=== PATIENT | female | born 1955 | race African-American/Black ===

== ENCOUNTER 2016-07-14 23:40 | Emergency (ER) | payer OTHER ==
--- NOTE | ~2016-07-14 | EKG ---
PATIENT: DONNELL PHILIP UNIT #: [id number] Ventricular Rate: 71 BPM Atrial Rate: 71 BPM P-R Interval: 154 ms QRS Duration: 80 ms Q-T Interval: 418 ms QTC Calculation(Bezet): 454 ms P [place]: 50 degrees Calculated R [place]: 55 degrees Calculated T [place]: 62 degrees Diagnosis Line: Normal sinus rhythm Diagnosis Line: Normal ECG Diagnosis Line: When compared with ECG of 23-DEC-2011 00:27, Diagnosis Line: No significant change was found Diagnosis Line: Confirmed by JEANNINE CORONA MD ([id number]) on Diagnosis Line: 07/16/2016 4:05:53 PM INTERPRETING MD: CJ JOSÉ
--- NOTE | ~2016-07-14 | CR72 ---
[facility] A Service of [facility] & [facility] RADIOLOGY TEXT RESULTS PATIENT: DONNELL PHILIP LOCATION: [facility] : 51 UNIT #: [id number] AGE: [address]: Barney Silverman MD SEX: F ORDER DR: [id number] [facility] [address] [place], [place] [address] [id number] E MR#: [id number] Acc #: [id number] NAME: DONNELL PHILIP : 1955 SEX: F STUDY DATE/TIME: 07/14/2016 UNIT: [facility] ROOM: STUDY DESCRIPTION: CR Chest Single View Portable Attending Physician: Barney Silverman M.D. Ordering Physician: Barney Silverman M.D. Primary Care Physician: [facility] MEDICAL IMAGING REPORT This report is preliminary unless electronic signature is present EXAM Portable chest 07/14 23:05 hours INDICATIONS Chest pain and pressure with shortness of air that started 5 days ago. History of smoking, hypertension. FINDINGS AP portable chest is compared with 12/23/2011. Cardiac and mediastinal contours are normal. The left lung is clear. There is mild infiltrate or atelectasis at the lateral right base. No pneumothorax. IMPRESSION Infiltrate or atelectasis at the right lung base. Otherwise negative portable chest. Dictated by... Raghavendra Peterson Jr., M.D. THIS IS AN ELECTRONICALLY VERIFIED REPORT Raghavendra Peterson Jr., M.D. at 07/15/2016 12:35 PM HUMBLE/madina TD: 07/15/2016 11:57 JOB #: [id number] MEDICAL IMAGING REPORT COPY
--- NOTE | ~2016-07-14 | CT16 ---
[facility] A Service of [facility] RADIOLOGY TEXT RESULTS PATIENT: DONNELL PHILIP LOCATION: [facility] : 51 UNIT #: [id number] AGE: [address]: Barney Silverman MD SEX: F ORDER DR: [id number] [facility] [address] [place], [place] [address] [id number] E MR#: [id number] Acc #: [id number] NAME: DONNELL PHILIP : 1955 SEX: F STUDY DATE/TIME: 07/15/2016 00:16 UNIT: [facility] ROOM: STUDY DESCRIPTION: CT Angio Chest for PE Attending Physician: Barney Silverman M.D. Ordering Physician: Barney Silverman M.D. Primary Care Physician: [facility] MEDICAL IMAGING REPORT This report is preliminary unless electronic signature is present EXAM Chest CTA 07/15/2016 0016 hours INDICATION Midsternal chest pain for 1 week occasionally radiating to the back. Shortness of air. Pain with inspiration. Elevated D-dimer today. History of hypertension. TECHNIQUE Axial images were obtained through the chest following IV contrast administration. 3-D reformats were obtained. Comparison is made with 12/23/2011. This CT examination was performed with one or more of the following radiation dose reduction techniques: automatic exposure control, adjustment of mA and/or kV according to patient size, and iterative reconstruction. FINDINGS There is no pulmonary embolism or aortic dissection. No pericardial effusion or pleural effusion. Lungs are clear except for some mild atelectasis in the lower lobes. The upper abdomen demonstrates a small left renal cyst. IMPRESSION No pulmonary embolism or aortic dissection. No active disease except for some mild atelectasis in both lower lobes. Dictated by... Raghavendra Peterson Jr., M.D. THIS IS AN ELECTRONICALLY VERIFIED REPORT Raghavendra Peterson Jr., M.D. at 07/16/2016 6:40 AM RLK/mieshas [facility] A Service of [facility] & [facility] RADIOLOGY TEXT RESULTS PATIENT: DONNELL PHILIP LOCATION: [facility] #: [id number] : 51 UNIT #: [id number] AGE: [address]: Barney Silverman MD SEX: F ORDER DR: TD: 07/15/2016 12:25 JOB #: [id number] MEDICAL IMAGING REPORT COPY
[2016-07-14 23:06] LABS: BASOPHIL# 0.1 X10e3 (0-0.3); BASOPHIL% 0.6 % (0-2.5); EOSINOPHIL# 0.5 X10e3 (0-0.7); EOSINOPHIL% 3.2 % (0.0-7.0); HEMOGLOBIN 12.2 gm/dL (12.0-16.0); LYMPHOCYTE# 3.3 X10e3 (1.0-3.5); LYMPHOCYTE% 23.4 % (17.0-45.0); MEAN CELL VOLUME 85.9 FL (83-96); MEAN CORPUSCULAR HEMOGLOBIN 28.4 PG (28-34); MEAN CORPUSCULAR HGB CONC 33.1 g/dL (30-36); MEAN PLATELET VOLUME 8.9 FL (6.5-11.5); MONOCYTE# 1.2 X10e3 (0-1.0); MONOCYTE% 8.3 % (3.0-12.0); NEUTROPHIL% 64.5 % (40-75); PLATELET COUNT 304 X10e3 (140-420); RED BLOOD COUNT 4.31 X10e (3.90-5.30); RED CELL DISTRIBUTION WIDTH 15.7 % (11.0-15.5)
[2016-07-14 23:08] LABS: DIFF IND NO
[2016-07-14 23:16] LABS: POC - CKMB 1.1 ng/mL (0.0-7.9); POC - TROPONIN <0.05 ng/mL (<=0.05)
[2016-07-14 23:24] LABS: ALBUMIN SERUM 3.9 g/dL (3.5-5.0); ALKALINE PHOSPHATASE 73 U/L (32-92); ALT (SGPT) 14 U/L (10-40); AST (SGOT) 17 U/L (10-42); BILIRUBIN, DIRECT 0.1 mg/dL (0.0-0.2); BILIRUBIN,INDIRECT 0.4 mg/dL (0.0-0.9); BILIRUBIN,TOTAL 0.5 mg/dL (0.2-2.0); BLOOD UREA NITROGEN 19 mg/dL (9-23); CALCIUM SERUM 9.1 mg/dL (8.4-10.2); CARBON DIOXIDE 30 mmol/L (22-31); CHLORIDE 100 mmol/L (100-111); CREATININE SERUM 0.5 mg/dL (0.6-1.4); GLOM FILT RATE Estimated ABOVE60 mL/min (>60); GLUCOSE FASTING 158 mg/dL (70-110); PROTEIN TOTAL SERUM 7.6 g/dL (6.0-8.3); SODIUM 138 mmol/L (135-145)
[2016-07-14 23:25] LABS: PROTHROMBIN TIME (PATIENT) 10.8 SECONDS (9.6-11.5)
[2016-07-14 23:26] LABS: POTASSIUM 2.9 mmol/L (3.5-5.1)
[~2016-07-14 23:40] MED LIST: ALL DAY ALLERGY10 M3 PO; CALCIUM + D 6001 TA1 PO; CELEXA20 MG PO; CENTRUM SILVER1 EAC3 PO; DIAZEPAM2 MG PO; GLUCOSAMINE &1 EACH PO; HYDROCHLOROTHIA25 MG PO; IBUPROFEN800 MG PO; OMEPRAZOLE20 M1 PO; POTASSIUM CHLO10 MEQ DOB; RESTASIS32 EA OU; SYNTHROID0.05 MG DOB; TRAVATAN Z5 ML; TYL325 PO; VITAMIN C100 MG PO
== END 2016-07-15 02:24 | disposition home or self-care (01) ==
LOC: CED 23:40
PROVIDERS: Emergency Medicine
DX: J18.9 Pneumonia, unspecified organism (principal); F32.9 Major depressive disorder, single episode, unspecified; F41.9 Anxiety disorder, unspecified; F17.200 Nicotine dependence, unspecified, uncomplicated; Z79.899 Other long term (current) drug therapy
CPT/HCPCS: 36415; 71010; 71275; 80048; 80076; 82553; 84484; 85025; 85379; 85610; 85730; 93005; 99284; J1956; Q9967

== ENCOUNTER 2016-07-18 03:38 | Emergency (ER) | payer OTHER ==
--- NOTE | ~2016-07-18 | CR72 ---
[facility] A Service of [facility] & [facility] RADIOLOGY TEXT RESULTS PATIENT: DONNELL PHILIP LOCATION: [facility] : 51 UNIT #: [id number] AGE: [address]: Clarita Gates MD SEX: F ORDER DR: [id number] [facility] [address] [place], [place] [address] [id number] E MR#: [id number] Acc #: [id number] NAME: DONNELL PHILIP : 1955 SEX: F STUDY DATE/TIME: 07/18/2016 03:51 UNIT: [facility] ROOM: STUDY DESCRIPTION: CR Chest Single View Portable Attending Physician: Clarita Gates M.D. Ordering Physician: Clarita Gates M.D. Primary Care Physician: [facility] MEDICAL IMAGING REPORT This report is preliminary unless electronic signature is present EXAM Chest 07/17/2016 at 0351 INDICATION Shortness of air and cold chills for 3 days. Patient diagnosed with pneumonia 3 days ago. FINDINGS AP portable chest compared with 07/14/2016 and 12/23/2011. Cardiac and mediastinal contours remain normal. The left lung is clear. There is persistent infiltrate or atelectasis at the right base which is unchanged. No pneumothorax. IMPRESSION No interval change. There is persistent atelectasis or infiltrate in the right lung base. Dictated by... Raghavendra Peterson Jr., M.D. THIS IS AN ELECTRONICALLY VERIFIED REPORT Raghavendra Peterson Jr., M.D. at 07/18/2016 10:02 PM HUMBLE/sonia TD: 07/18/2016 08:17 JOB #: [id number] MEDICAL IMAGING REPORT COPY
== END 2016-07-18 05:15 | disposition home or self-care (01) ==
LOC: CED 03:38
DX: J18.9 Pneumonia, unspecified organism (principal); M54.32 Sciatica, left side
CPT/HCPCS: 71010; 99283

== ENCOUNTER → 2016-07-26 23:15 | Emergency (ER) | payer OTHER ==
--- NOTE | ~2016-07-26 | EKG ---
PATIENT: DONNELL PHILIP UNIT #: [id number] Ventricular Rate: 79 BPM Atrial Rate: 79 BPM P-R Interval: 154 ms QRS Duration: 76 ms Q-T Interval: 390 ms QTC Calculation(Bezet): 447 ms P [place]: 66 degrees Calculated R [place]: 63 degrees Calculated T [place]: 71 degrees Diagnosis Line: Normal sinus rhythm Diagnosis Line: Normal ECG Diagnosis Line: When compared with ECG of 14-JUL-2016 22:19, Diagnosis Line: No significant change was found Diagnosis Line: Confirmed by MAX JAY MD ([id number]) on 07/29/2016 Diagnosis Line: 7:25:35 AM INTERPRETING MD: MISTY JOSÉ
[2016-07-26 19:50] LABS: BASOPHIL# 0.1 X10e3 (0-0.3); EOSINOPHIL# 0.3 X10e3 (0-0.7); EOSINOPHIL% 2.1 % (0.0-7.0); HEMATOCRIT 39.5 % (35.0-45.0); HEMOGLOBIN 12.9 gm/dL (12.0-16.0); LYMPHOCYTE# 4.1 X10e3 (1.0-3.5); LYMPHOCYTE% 27.4 % (17.0-45.0); MEAN CELL VOLUME 86.6 FL (83-96); MEAN CORPUSCULAR HEMOGLOBIN 28.2 PG (28-34); MEAN CORPUSCULAR HGB CONC 32.6 g/dL (30-36); MEAN PLATELET VOLUME 8.7 FL (6.5-11.5); MONOCYTE# 1.1 X10e3 (0-1.0); MONOCYTE% 7.6 % (3.0-12.0); NEUTROPHIL# 9.4 X10e3 (1.5-7.1); NEUTROPHIL% 61.9 % (40-75); PLATELET COUNT 344 X10e3 (140-420); RED BLOOD COUNT 4.56 X10e (3.90-5.30); RED CELL DISTRIBUTION WIDTH 15.9 % (11.0-15.5); WHITE BLOOD COUNT 15.1 X10e3 (4.0-10.5)
[2016-07-26 19:51] LABS: DIFF IND NO
[2016-07-26 20:08] LABS: ALBUMIN SERUM 3.9 g/dL (3.5-5.0); ALKALINE PHOSPHATASE 72 U/L (32-92); ALT (SGPT) 15 U/L (10-40); AST (SGOT) 17 U/L (10-42); BILIRUBIN, DIRECT 0.1 mg/dL (0.0-0.2); BILIRUBIN,INDIRECT 0.3 mg/dL (0.0-0.9); BILIRUBIN,TOTAL 0.4 mg/dL (0.2-2.0); BLOOD UREA NITROGEN 22 mg/dL (9-23); BUN/CREATININE RATIO 31.42; CALCIUM SERUM 8.9 mg/dL (8.4-10.2); CARBON DIOXIDE 30 mmol/L (22-31); CHLORIDE 100 mmol/L (100-111); CREATININE SERUM 0.7 mg/dL (0.6-1.4); GLOM FILT RATE Estimated ABOVE60 mL/min (>60); GLUCOSE FASTING 108 mg/dL (70-110); POTASSIUM 3.6 mmol/L (3.5-5.1); PROTEIN TOTAL SERUM 7.8 g/dL (6.0-8.3); SODIUM 135 mmol/L (135-145)
== END | disposition home or self-care (01) ==
LOC: CED 23:15
PROVIDERS: Emergency Medicine
DX: Z53.21 Procedure and treatment not carried out due to patient leaving prior to being seen by health care provider (principal)
CPT/HCPCS: 80048; 80076; 85025; 93005

== ENCOUNTER → 2016-08-07 19:15 | Emergency (ER) | payer OTHER | END | disposition left against medical advice (07) | LOC: CED 19:15 | DX: Z53.21 Procedure and treatment not carried out due to patient leaving prior to being seen by health care provider (principal) ==

== ENCOUNTER → 2016-08-12 | Outpatient (CLI) | payer OTHER ==
--- NOTE | ~2016-08-12 | CR63 ---
[facility] A Service of [facility] & [facility] RADIOLOGY TEXT RESULTS PATIENT: DONNELL PHILIP LOCATION: [facility] : 51 UNIT #: [id number] AGE: [address]: Rebekah Diaz MD SEX: F ORDER DR: [id number] [facility] [address] [place] [address] [place], [place] [address] [id number] O MR#: [id number] Acc #: [id number] NAME: DONNELL PHILIP : 1955 SEX: F STUDY DATE/TIME: 08/12/2016 16:22 UNIT: [facility] ROOM: STUDY DESCRIPTION: CR Chest 2 View Attending Physician: Rebekah Diaz M.D. Referring Physician: Rebekah Diaz M.D. Ordering Physician: Rebekah Diaz M.D. Primary Care Physician: [facility] MEDICAL IMAGING REPORT This report is preliminary unless electronic signature is present EXAM PA and lateral chest INDICATIONS Shortness of breath for 2 months. COMPARISON 07/18/2016 FINDINGS Decreased atelectasis in the right base. No new infiltrates. Heart size normal. Visualized osseous structures are unremarkable. IMPRESSION Decreased atelectasis in the right base. No new infiltrate. Dictated by... Fili Carrasco M.D. THIS IS AN ELECTRONICALLY VERIFIED REPORT Fili Carrasco M.D. at 08/15/2016 9:00 AM Connor TD: 08/13/2016 07:34 JOB #: [id number] MEDICAL IMAGING REPORT Page 1 of 1 COPY
== END | disposition home or self-care (01) ==
LOC: CRAD 16:03
DX: J18.9 Pneumonia, unspecified organism (principal); J98.11 Atelectasis
CPT/HCPCS: 71020

== ENCOUNTER 2016-11-26 17:27 | Emergency (ER) | payer OTHER ==
[~2016-11-26] VITALS: Ht 165.1 cm; Wt 90.7 kg
--- NOTE | ~2016-11-26 | EKG ---
PATIENT: DONNELL PHILIP UNIT #: [id number] Ventricular Rate: 81 BPM Atrial Rate: 81 BPM P-R Interval: 150 ms QRS Duration: 76 ms Q-T Interval: 392 ms QTC Calculation(Bezet): 455 ms P [place]: 29 degrees Calculated R [place]: 43 degrees Calculated T [place]: 58 degrees Diagnosis Line: Normal sinus rhythm Diagnosis Line: Normal ECG Diagnosis Line: Diagnosis Line: Confirmed by NEVAEH RUVALCABA MD ([id number]) on Diagnosis Line: 11/27/2016 8:31:18 AM INTERPRETING MD: JORDON JOSÉ
--- NOTE | ~2016-11-26 | CR72 ---
[facility] A Service of [facility] & [facility] & [facility] RADIOLOGY TEXT RESULTS PATIENT: DONNELL PHILIP LOCATION: [facility] : 51 UNIT #: [id number] AGE: [address]: Barney Silverman MD SEX: F ORDER DR: [id number] [facility] [address] [place], [place] [address] [id number] E MR#: [id number] Acc #: [id number] NAME: DONNELL PHILIP. : 1955 SEX: F STUDY DATE/TIME: 11/26/2016 19:28 UNIT: [facility] ROOM: STUDY DESCRIPTION: CR Chest Single View Portable Attending Physician: Barney Silverman M.D. Ordering Physician: Barney Silverman M.D. Primary Care Physician: [facility] MEDICAL IMAGING REPORT This report is preliminary unless electronic signature is present EXAM Portable chest. HISTORY Shortness of air and chest pain for 1 week. FINDINGS The cardiac size and pulmonary vascularity are normal. No airspace infiltrates. No effusions. Mild linear atelectasis or scarring in the lung bases. Bilateral cervical ribs. IMPRESSION No acute findings. Dictated by... Ryan Weber M.D. THIS IS AN ELECTRONICALLY VERIFIED REPORT Ryan Weber M.D. at 11/27/2016 11:32 PM DFL/angel TD: 11/27/2016 07:37 JOB #: [id number] MEDICAL IMAGING REPORT Page 1 of 1 COPY
[2016-11-26 18:10] LABS: BASOPHIL# 0.1 X10e3 (0-0.3); BASOPHIL% 1.2 % (0-2.5); EOSINOPHIL# 0.3 X10e3 (0-0.7); EOSINOPHIL% 2.6 % (0.0-7.0); HEMATOCRIT 40.3 % (35.0-45.0); HEMOGLOBIN 13.3 gm/dL (12.0-16.0); LYMPHOCYTE% 27.5 % (17.0-45.0); MEAN CELL VOLUME 86.5 FL (83-96); MEAN CORPUSCULAR HEMOGLOBIN 28.5 PG (28-34); MEAN PLATELET VOLUME 8.7 FL (6.5-11.5); MONOCYTE# 0.9 X10e3 (0-1.0); MONOCYTE% 8.2 % (3.0-12.0); NEUTROPHIL# 6.6 X10e3 (1.5-7.1); NEUTROPHIL% 60.5 % (40-75); PLATELET COUNT 302 X10e3 (140-420); RED BLOOD COUNT 4.66 X10e (3.90-5.30); RED CELL DISTRIBUTION WIDTH 14.8 % (11.0-15.5); WHITE BLOOD COUNT 10.9 X10e3 (4.0-10.5)
[2016-11-26 18:12] LABS: DIFF IND NO
[2016-11-26 18:30] LABS: ALBUMIN SERUM 4.3 g/dL (3.5-5.0); ALKALINE PHOSPHATASE 86 U/L (32-92); ALT (SGPT) 18 U/L (10-40); AST (SGOT) 18 U/L (10-42); BILIRUBIN,TOTAL 0.4 mg/dL (0.2-2.0); BLOOD UREA NITROGEN 17 mg/dL (9-23); BUN/CREATININE RATIO 18.88; CALCIUM SERUM 9.6 mg/dL (8.4-10.2); CARBON DIOXIDE 31 mmol/L (22-31); CHLORIDE 99 mmol/L (100-111); CREATININE SERUM 0.9 mg/dL (0.6-1.4); GLOM FILT RATE Estimated 78.9 mL/min (>60); GLUCOSE FASTING 100 mg/dL (70-110); POTASSIUM 3.5 mmol/L (3.5-5.1); PROTEIN TOTAL SERUM 8.6 g/dL (6.0-8.3); SODIUM 138 mmol/L (135-145)
[2016-11-26 18:36] LABS: BILIRUBIN, DIRECT <0.1 mg/dL (0.0-0.2); BILIRUBIN,INDIRECT 0.3 mg/dL (0.0-0.9)
[2016-11-26 18:46] LABS: POC - CKMB 1.3 ng/mL (0.0-7.9); POC - TROPONIN <0.05 ng/mL (<=0.05)
[2016-11-26 20:19] LABS: POC - CKMB 1.2 ng/mL (0.0-7.9); POC - TROPONIN <0.05 ng/mL (<=0.05)
== END 2016-11-26 21:00 | disposition home or self-care (01) ==
LOC: CED 17:27
PROVIDERS: Emergency Medicine
DX: R06.02 Shortness of breath (principal); I10 Essential (primary) hypertension; K21.9 Gastro-esophageal reflux disease without esophagitis; F41.9 Anxiety disorder, unspecified; Z87.01 Personal history of pneumonia (recurrent)
CPT/HCPCS: 36415; 71010; 80048; 80076; 82553; 84484; 85025; 93005; 99285